=== PATIENT | female | born 1980 | race Hispanic/Latino ===

== ENCOUNTER 2024-04-07 21:49 | Inpatient (IN) | payer OTHER ==
[~2024-04-07] VITALS: Ht 157.5 cm; Wt 65.8 kg
[2024-04-07 22:21] VITALS: PULSE 109; RESP 22; O2SAT 100
[2024-04-07 22:21] LABS: BASOPHILS # (AUTO) 0.1 (0.0-0.1); BASOPHILS % 0.4 % (0.0-1.0); EOSINOPHILS # (AUTO) 0.4 (0.0-0.4); EOSINOPHILS % 3.7 % (0.0-6.0); HEMATOCRIT 39.6 % (34.2-44.1); HEMOGLOBIN 12.2 g/dL (12.0-16.0); LYMPHOCYTES # (AUTO) 2.8 (1.0-3.2); LYMPHOCYTES % 23.5 % (18.0-39.1); MEAN CORPUSCULAR HEMOGLOBIN 28.4 pg (28-32); MEAN CORPUSCULAR HGB CONC 30.8 g/dL (31-35); MEAN CORPUSCULAR VOLUME 92.1 fL (81-99); MONOCYTES # (AUTO) 0.8 (0.2-0.8); MONOCYTES % 6.4 % (4.4-11.3); NEUTROPHILS # (AUTO) 7.7 (2.1-6.9); NEUTROPHILS % 65.5 % (38.7-80.0); PLATELET COUNT 375 x10e3/uL (140-360)
[2024-04-07] MEDS: ALBUTEROL SULF 0.083% NEB SOLN 3 ML NEB NEB STA (22:24)
[2024-04-07 22:25] LABS: ABG PH 7.34 (7.35-7.45)
[2024-04-07 22:26] LABS: ABG HCO3 24 mmol/L (22-26); ABG PCO2 43 mmHg (35-45); ABG PO2 323 mmHg (80-105); ABG TCO2 25
[2024-04-07 22:29] LABS: INFLUENZAE A&B ANTIGEN (RAPID) NEGATIVE (NEGATIVE); RESPIRATORY SYNC. VIRUS NEGATIVE (NEGATIVE)
[2024-04-07] MEDS: SODIUM CHLORIDE 0.9% 1000ML 1,000 ML IV ONE (22:32)
[2024-04-07] MEDS: METHYLPREDNISOLONE SOD SUCC 125 MG/2ML VIAL IV ONE (22:32)
[2024-04-07 22:38] LABS: ALBUMIN 3.7 g/dL (3.5-5.0); ALBUMIN/GLOBULIN RATIO 0.9 (0.8-2.0); ANION GAP 13.1 mmol/L (8-16); BILIRUBIN,TOTAL 0.3 mg/dL (0.2-1.2); CALCIUM 9.7 mg/dL (8.4-10.2); CREATININE, SERUM 0.8 mg/dL (0.57-1.11); POTASSIUM 4.1 mmol/L (3.5-5.1)
[2024-04-07 23:54] VITALS: PULSE 97; RESP 20; O2SAT 95
[2024-04-07] MEDS: IPRATROPIUM BROMIDE 0.02% 2.5 ML NEB NEB ONE (23:56)
[2024-04-08] VITALS (14 sets, daily range): BP systolic 122–146; BP diastolic 77–97; PULSE 83–110; RESP 16–20; TEMP 98–98.9; O2SAT 94–100
[2024-04-08] MEDS ORDERED: ONDANSETRON HCL INJ 2MG/ML 2ML 2 MG/ML VIAL IV PRN
[2024-04-08] MEDS: SODIUM CHLORIDE 0.9% 1000ML 1,000 ML IV SCH (00:14)
[2024-04-08] MEDS: ALBUTEROL/IPRATROPIUM 3 ML NEB NEB SCH ×2 (03:27→13:00)
[2024-04-08] MEDS ORDERED: PROTONIX20 MG PO (05:40)
[2024-04-08] MEDS ORDERED: CITALOPRAM HBR20 MG PO (05:40)
[2024-04-08] MEDS ORDERED: BUPROPION XL150 MG PO (05:40)
[2024-04-08] MEDS ORDERED: SYMBICORT 80-10.2 GM INH (05:40)
[2024-04-08] MEDS ORDERED: HYDROXYZINE PAM25 MG PO (05:40)
[2024-04-08] MEDS ORDERED: BENZONATATE100 MG PO (05:40)
[2024-04-08] MEDS ORDERED: PROPRANOLOL HCL40 MG PO (05:40)
[2024-04-08] MEDS ORDERED: MONTELUKAST SOD10 MG PO (05:40)
[2024-04-08] MEDS ORDERED: LACTULOSE10 GM/15 M (05:40)
[2024-04-08] MEDS ORDERED: NEURONTIN100 MG PO (05:40)
[2024-04-08] MEDS: METHYLPREDNISOLONE SOD SUCC 40 MG/ML VIAL 1ML IV SCH ×3 (05:48→22:07)
[2024-04-08 08:47] LABS: BASOPHILS % 0.1 % (0.0-1.0); HEMATOCRIT 39.6 % (34.2-44.1); LYMPHOCYTES # (AUTO) 0.9 (1.0-3.2); LYMPHOCYTES % 7.5 % (18.0-39.1); MEAN CORPUSCULAR HEMOGLOBIN 28.2 pg (28-32); MEAN CORPUSCULAR HGB CONC 30.3 g/dL (31-35); MONOCYTES # (AUTO) 0.1 (0.2-0.8); MONOCYTES % 0.4 % (4.4-11.3); NEUTROPHILS # (AUTO) 11.4 (2.1-6.9); NEUTROPHILS % 91.4 % (38.7-80.0); PLATELET COUNT 308 x10e3/uL (140-360); RED BLOOD COUNT 4.26 x10e6/uL (3.6-5.1); RED CELL DISTRIBUTION WIDTH 15.9 % (11.7-14.4); WHITE BLOOD COUNT 12.45 x10e3/uL (4.8-10.8)
[2024-04-08 09:15] LABS: ALBUMIN 3.3 g/dL (3.5-5.0); ALBUMIN/GLOBULIN RATIO 0.8 (0.8-2.0); ANION GAP 12.9 mmol/L (8-16); BILIRUBIN,TOTAL 0.4 mg/dL (0.2-1.2); CALCIUM 9.4 mg/dL (8.4-10.2); CREATININE, SERUM 0.68 mg/dL (0.57-1.11); POTASSIUM 3.9 mmol/L (3.5-5.1); TOTAL PROTEIN 7.4 g/dL (6.5-8.1)
[2024-04-08 10:58] LABS: LYMPHOCYTES % (MANUAL) 8 % (19-48); NEUTROPHILS % (MANUAL) 92 % (40-74)
[2024-04-08 11:00] LABS: ANISOCYTOSIS SLIGHT; PLATELET ESTIMATE ADEQUATE; PLATELET MORPHOLOGY COMMENT NORMAL
[2024-04-08 11:01] LABS: RBC MORPHOLOGY COMMENT NORMAL
[2024-04-08] MEDS ORDERED: POTASSIUM CHLORIDE 20 MEQ TAB CR PO PRN (12:15)
[2024-04-08] MEDS ORDERED: SIMETHICONE 80 MG CHEW PO PRN (12:15)
[2024-04-08] MEDS ORDERED: LIDOCAINE 4% PATCH TP PRN (12:15)
[2024-04-08] MEDS ORDERED: HYDRALAZINE HCL 20 MG/ML VIAL IV PRN (12:15)
[2024-04-08] MEDS ORDERED: BENZONATATE 100 MG CAP PO PRN (12:15)
[2024-04-08] MEDS ORDERED: METHYLPREDNISOLONE SOD SUCC 40 MG/ML VIAL 1ML IV SCH ×2 (12:15)
[2024-04-08] MEDS ORDERED: DIPHENHYDRAMINE HCL 25 MG CAP PO PRN (12:15)
[2024-04-08] MEDS ORDERED: DEXTROSE 50% SYRINGE 50 ML IV PRN (12:15)
[2024-04-08] MEDS ORDERED: HYDROXYZINE PAMOATE 25 MG CAP PO PRN (12:30)
[2024-04-08] MEDS ORDERED: PROPRANOLOL HCL 40 MG TAB PO PRN (12:30)
[2024-04-08] MEDS: BUDESONIDE 0.5MG/2 ML NEB INH SCH (13:38)
[2024-04-08] MEDS ORDERED: HYDROXYZINE HCL 25 MG TAB PO PRN (13:45)
[2024-04-08] MEDS: METHYLPREDNISOLONE SOD SUCC 125 MG/2ML VIAL IV ONE (13:46)
[2024-04-08] MEDS: ALBUTEROL/IPRATROPIUM 3 ML NEB NEB PRN (16:12)
[2024-04-08] MEDS: MAGNESIUM HYDROXIDE 30 ML UDC PO ONE (16:56)
[2024-04-08] MEDS: CITRATE OF MAGNESIA 300ML BOTTLE PO ONE (16:56)
[2024-04-08] MEDS: ENOXAPARIN SOD INJ 40 MG/0.4 ML SYR SC SCH (17:01)
[2024-04-08] MEDS: ACETAMINOPHEN 325 MG TAB PO PRN (17:55)
[2024-04-08] MEDS: CHLORASEPTIC SPRAY 177 ML BTL MM PRN (19:04)
[2024-04-08] MEDS: BUDESONIDE/FORMOTEROL 80/4.5 MCG INHALER IH SCH (19:49)
[2024-04-08] MEDS: MONTELUKAST SODIUM 10 MG TAB PO SCH (22:07)
[2024-04-08] MEDS: MELATONIN 5 MG TABLET PO PRN (22:18)
[2024-04-09] VITALS (11 sets, daily range): BP systolic 114–143; BP diastolic 76–86; PULSE 70–93; RESP 18–21; TEMP 98.2–98.5; O2SAT 96–99
[2024-04-09 05:19] LABS: BASOPHILS % 0.1 % (0.0-1.0); HEMATOCRIT 40.2 % (34.2-44.1); HEMOGLOBIN 12.1 g/dL (12.0-16.0); LYMPHOCYTES # (AUTO) 1.5 (1.0-3.2); LYMPHOCYTES % 8.9 % (18.0-39.1); MEAN CORPUSCULAR HEMOGLOBIN 27.9 pg (28-32); MEAN CORPUSCULAR HGB CONC 30.1 g/dL (31-35); MEAN CORPUSCULAR VOLUME 92.8 fL (81-99); MONOCYTES # (AUTO) 0.4 (0.2-0.8); MONOCYTES % 2.1 % (4.4-11.3); NEUTROPHILS # (AUTO) 15.2 (2.1-6.9); NEUTROPHILS % 88.1 % (38.7-80.0); PLATELET COUNT 425 x10e3/uL (140-360); RED BLOOD COUNT 4.33 x10e6/uL (3.6-5.1); RED CELL DISTRIBUTION WIDTH 16.2 % (11.7-14.4)
[2024-04-09 06:00] LABS: ANION GAP 13.4 mmol/L (8-16); CALCIUM 10.1 mg/dL (8.4-10.2); CREATININE, SERUM 0.77 mg/dL (0.57-1.11); POTASSIUM 4.4 mmol/L (3.5-5.1)
[2024-04-09] MEDS: PANTOPRAZOLE SOD 40 MG TABEC PO SCH (07:49)
[2024-04-09] MEDS: GABAPENTIN 100 MG CAP PO SCH (09:40)
[2024-04-09] MEDS: BUPROPION HCL 150 MG TABCR PO SCH (09:40)
[2024-04-09] MEDS: CITALOPRAM HYDROBROMIDE 20 MG TAB PO SCH (09:40)
[2024-04-09] MEDS: METHYLPREDNISOLONE SOD SUCC 40 MG/ML VIAL 1ML IV SCH (13:52)
[2024-04-10] VITALS (12 sets, daily range): BP systolic 124–137; BP diastolic 82–90; PULSE 72–91; RESP 17–20; TEMP 98.1–98.8; O2SAT 94–98
[2024-04-10] MEDS: GUAIFENESIN/CODEINE 5 ML LIQD PO PRN (06:38)
[2024-04-10] MEDS: MAGNESIUM HYDROXIDE 30 ML UDC PO PRN (20:45)
[2024-04-11] VITALS (7 sets, daily range): BP systolic 124–145; BP diastolic 91–98; PULSE 70–90; RESP 17–20; TEMP 98.1–98.4; O2SAT 94–97
[2024-04-11] MEDS: DOCUSATE SODIUM 100 MG CAP PO PRN (05:42)
[2024-04-11 07:20] LABS: ASPERGILLUS FUMIGATUS IGE <0.10 kU/L (Class 0); Alternaria alternata IgE <0.10 kU/L (Class 0); BAHIA GRASS IGE <0.10 kU/L (Class 0); CEDAR, MOUNTAIN IGE <0.10 kU/L (Class 0); COMMON RAGWEED IgE <0.10 kU/L (Class 0); Cladopsorium herbarum IgE <0.10 kU/L (Class 0); ELM, AMERICAN IGE 0.17 kU/L (Class 0/I); JOHNSON GRASS IGE <0.10 kU/L (Class 0); MAPLE/BOX ELDER IGE <0.10 kU/L (Class 0); MUCOR RACEMOSUS <0.10 kU/L (Class 0); MUGWORT IGE <0.10 kU/L (Class 0); NETTLE IGE <0.10 kU/L (Class 0); PENICILLIUM CHRYSOGEN IGE <0.10 kU/L (Class 0); PLANTAIN, ENGLISH IGE <0.10 kU/L (Class 0); SHEEP SORREL (DOCK) IGE 0.14 kU/L (Class 0/I); STEMPHYLIUM HERBARUM IGE <0.10 kU/L (Class 0); SYCAMORE,AMERICAN IGE <0.10 kU/L (Class 0); TIMOTHY IGE <0.10 kU/L (Class 0); WHITE MULBERRY IGE <0.10 kU/L (Class 0)
[2024-04-11 09:21] LABS: AMERICAN COCKROACH IGE <0.10 kU/L (Class 0); HICKORY,WHITE IGE <0.10 kU/L (Class 0)
[2024-04-11] MEDS ORDERED: ONDANSETRON HCL 4 MG ORAL DISINTEGRATING TAB PO PRN (17:00)
[2024-04-12] MEDS ORDERED: AZITHROMYCIN 250 MG TAB PO SCH (09:00)
== END 2024-04-11 16:45 | disposition home or self-care (01) | DRG 202 ==
LOC: ER 21:59 → ERHOLD 04-08 → MED/SURG 04-08 03:10 → OBSVTOIN 04-08 12:17
PROVIDERS: ADMIT Internal Medicine; ATTEND Internal Medicine
DX: J45.901 Unspecified asthma with (acute) exacerbation (principal); J96.21 Acute and chronic respiratory failure with hypoxia; J45.902 Unspecified asthma with status asthmaticus; F41.9 Anxiety disorder, unspecified; K59.00 Constipation, unspecified; Z11.52 Encounter for screening for COVID-19; Z82.5 Family history of asthma and other chronic lower respiratory diseases
CPT/HCPCS: 36415; 36600; 71045; 74018; 80048; 80053; 81025; 82785; 82805; 84484; 85025; 86001; 86003; 87400; 87420; 93005; 94640; 94664; 94799; 99284; J0696; J1650; J2919; J7030; J7050; Q0177; U0002

== ENCOUNTER 2024-05-23 07:16 | Inpatient (IN) | payer OTHER ==
[2024-05-23] VITALS (25 sets, daily range): BP systolic 102–122; BP diastolic 64–90; PULSE 73–92; RESP 14–35; TEMP 97.2–98.6; O2SAT 89–100
[~2024-05-23] VITALS: Ht 157.5 cm; Wt 63.5 kg
[~2024-05-23 07:16] MED LIST: BENZONATATE100 MG PO; BUPROPION XL150 MG PO; CITALOPRAM HBR20 MG PO; HYDROXYZINE PAM25 MG PO; LACTULOSE10 GM/15 M; MONTELUKAST SOD10 MG PO; NEURONTIN100 MG PO; PROPRANOLOL HCL40 MG PO; PROTONIX20 MG PO; SYMBICORT 80-10.2 GM INH
[2024-05-23] MEDS ORDERED: MAGNESIUM SULFATE 2GM/50ML 50 ML IV ONE (07:24)
[2024-05-23] MEDS ORDERED: SODIUM CHLORIDE 0.9% 1000ML 1,000 ML ONE (07:24)
[2024-05-23] MEDS ORDERED: METHYLPREDNISOLONE SOD SUCC 125 MG/2ML VIAL ONE (07:24)
[2024-05-23] MEDS: MAGNESIUM SULFATE 2GM/50ML 50 ML IV ONE (07:27)
[2024-05-23] MEDS: METHYLPREDNISOLONE SOD SUCC 125 MG/2ML VIAL IV ONE (07:27)
[2024-05-23] MEDS: SODIUM CHLORIDE 0.9% 1000ML 1,000 ML IV ONE (07:27)
[2024-05-23 07:41] LABS: BASOPHILS # (AUTO) 0.1 (0.0-0.1); BASOPHILS % 0.6 % (0.0-1.0); EOSINOPHILS # (AUTO) 0.8 (0.0-0.4); EOSINOPHILS % 7.8 % (0.0-6.0); LYMPHOCYTES # (AUTO) 2.2 (1.0-3.2); LYMPHOCYTES % 20.4 % (18.0-39.1); MEAN CORPUSCULAR HEMOGLOBIN 27.8 pg (28-32); MEAN CORPUSCULAR HGB CONC 30.2 g/dL (31-35); MEAN CORPUSCULAR VOLUME 92.1 fL (81-99); MONOCYTES # (AUTO) 0.5 (0.2-0.8); MONOCYTES % 4.6 % (4.4-11.3); NEUTROPHILS # (AUTO) 7.2 (2.1-6.9); NEUTROPHILS % 66.3 % (38.7-80.0); PLATELET COUNT 442 x10e3/uL (140-360); RED BLOOD COUNT 4.67 x10e6/uL (3.6-5.1); RED CELL DISTRIBUTION WIDTH 15.9 % (11.7-14.4)
[2024-05-23] MEDS: ALBUTEROL/IPRATROPIUM 3 ML NEB NEB ONE (07:50)
[2024-05-23 07:53] LABS: ALBUMIN 3.8 g/dL (3.5-5.0); ALBUMIN/GLOBULIN RATIO 0.8 (0.8-2.0); ANION GAP 11.9 mmol/L (8-16); BILIRUBIN,TOTAL 0.5 mg/dL (0.2-1.2); CALCIUM 9.8 mg/dL (8.4-10.2); CREATININE, SERUM 0.73 mg/dL (0.57-1.11); POTASSIUM 3.9 mmol/L (3.5-5.1); TOTAL PROTEIN 8.3 g/dL (6.5-8.1)
[2024-05-23] MEDS: ALBUTEROL SULF 0.083% NEB SOLN 3 ML NEB NEB STA (08:25)
[2024-05-23] MEDS ORDERED: ONDANSETRON HCL INJ 2MG/ML 2ML 2 MG/ML VIAL IV PRN (09:30)
[2024-05-23] MEDS: MUPIROCIN 2% OINT 22 GM TUBE TOP SCH (09:30)
[2024-05-23] MEDS ORDERED: SODIUM CHLORIDE 0.9% 1000ML 1,000 ML IV SCH (09:30)
[2024-05-23] MEDS: ALBUTEROL/IPRATROPIUM 3 ML NEB NEB SCH (14:31)
[2024-05-23] MEDS: BUDESONIDE/FORMOTEROL 160/4.5MCG INHALER INH SCH (18:29)
[2024-05-23] MEDS: ACETAMIN/BUTALBITAL/CAFFEINE TAB PO PRN (19:45)
[2024-05-23] MEDS: METHYLPREDNISOLONE SOD SUCC 40 MG/ML VIAL 1ML IV SCH (21:06)
[2024-05-24] VITALS (22 sets, daily range): BP systolic 100–122; BP diastolic 68–87; PULSE 69–99; RESP 12–28; TEMP 98.2–98.7; O2SAT 90–98
[2024-05-24] MEDS: BENZONATATE 100 MG CAP PO PRN (04:25)
[2024-05-24 07:40] LABS: BASOPHILS % 0.1 % (0.0-1.0); EOSINOPHILS % 0.1 % (0.0-6.0); HEMATOCRIT 35.7 % (34.2-44.1); HEMOGLOBIN 11.3 g/dL (12.0-16.0); LYMPHOCYTES # (AUTO) 1.8 (1.0-3.2); LYMPHOCYTES % 24.6 % (18.0-39.1); MEAN CORPUSCULAR HEMOGLOBIN 27.8 pg (28-32); MEAN CORPUSCULAR HGB CONC 31.7 g/dL (31-35); MEAN CORPUSCULAR VOLUME 87.9 fL (81-99); MONOCYTES # (AUTO) 0.4 (0.2-0.8); MONOCYTES % 5.3 % (4.4-11.3); NEUTROPHILS % 69.3 % (38.7-80.0); PLATELET COUNT 329 x10e3/uL (140-360); RED BLOOD COUNT 4.06 x10e6/uL (3.6-5.1); RED CELL DISTRIBUTION WIDTH 15.9 % (11.7-14.4); WHITE BLOOD COUNT 7.23 x10e3/uL (4.8-10.8)
[2024-05-24] MEDS ORDERED: HYDROXYZINE PAMOATE 25 MG CAP PO PRN (07:45)
[2024-05-24] MEDS ORDERED: IOPAMIDOL 370 MG/ML 100 ML INFUS..BTL INJ ONE (07:55)
[2024-05-24 08:10] LABS: ALBUMIN 3.4 g/dL (3.5-5.0); ALBUMIN/GLOBULIN RATIO 0.9 (0.8-2.0); ANION GAP 14.1 mmol/L (8-16); BILIRUBIN,TOTAL 0.4 mg/dL (0.2-1.2); CALCIUM 9.5 mg/dL (8.4-10.2); CREATININE, SERUM 0.73 mg/dL (0.57-1.11); POTASSIUM 4.1 mmol/L (3.5-5.1); TOTAL PROTEIN 7.1 g/dL (6.5-8.1)
[2024-05-24] MEDS: CITALOPRAM HYDROBROMIDE 20 MG TAB PO SCH (09:15)
[2024-05-24] MEDS: BUPROPION HCL 150 MG TABCR PO SCH (09:15)
[2024-05-24] MEDS: ALBUTEROL/IPRATROPIUM 3 ML NEB NEB SCH (11:33)
[2024-05-24] MEDS ORDERED: ALBUTEROL SULF 0.083% NEB SOLN 3 ML NEB NEB SCH (13:00)
[2024-05-24] MEDS: MONTELUKAST SODIUM 10 MG TAB PO SCH (20:04)
[2024-05-25] VITALS (16 sets, daily range): BP systolic 109–135; BP diastolic 73–97; PULSE 75–100; RESP 14–20; TEMP 98.2–98.7; O2SAT 93–99
[2024-05-26] VITALS (11 sets, daily range): BP systolic 113–129; BP diastolic 83–96; PULSE 77–106; RESP 15–25; TEMP 97.7–98.9; O2SAT 92–99
[2024-05-26] MEDS ORDERED: Albuterol/Ipratropium Nebulize NEB (16:34)
[2024-05-26] MEDS ORDERED: AZITHROMYCIN250 MG PO (16:34)
[2024-05-26] MEDS ORDERED: SYMBICORT 16010.2 GM INH (16:34)
== END 2024-05-26 17:10 | disposition home or self-care (01) | DRG 202 ==
LOC: ER 07:20 → ERHOLD 09:18 → ICU 13:21 → MED/SURG2 05-26 08:33
PROVIDERS: ADMIT Internal Medicine; ATTEND Internal Medicine
DX: J45.901 Unspecified asthma with (acute) exacerbation (principal); J12.9 Viral pneumonia, unspecified; J96.01 Acute respiratory failure with hypoxia; F41.9 Anxiety disorder, unspecified; J45.902 Unspecified asthma with status asthmaticus
CPT/HCPCS: 36415; 71045; 71260; 80053; 82948; 84702; 85025; 94640; 94664; 94799; 99284; J0696; J2919; J3475; J7030; J7050; Q9967

== ENCOUNTER 2024-06-24 12:33 | Inpatient (IN) | payer SELFPAY ==
[~2024-06-24] VITALS: Ht 157.5 cm; Wt 63.5 kg
[2024-06-24] VITALS (9 sets, daily range): BP systolic 125–131; BP diastolic 91; PULSE 65–97; RESP 18–22; TEMP 97.8–98.3; O2SAT 96–98
[~2024-06-24 12:33] MED LIST changes: +AZITHROMYCIN250 MG PO; +Albuterol/Ipratropium Nebulize NEB; +SYMBICORT 16010.2 GM INH
[2024-06-24 13:00] LABS: BASOPHILS # (AUTO) 0.1 (0.0-0.1); BASOPHILS % 0.9 % (0.0-1.0); EOSINOPHILS # (AUTO) 0.7 (0.0-0.4); EOSINOPHILS % 7.7 % (0.0-6.0); HEMATOCRIT 40.1 % (34.2-44.1); HEMOGLOBIN 11.8 g/dL (12.0-16.0); LYMPHOCYTES # (AUTO) 2.4 (1.0-3.2); MEAN CORPUSCULAR HEMOGLOBIN 27.4 pg (28-32); MEAN CORPUSCULAR HGB CONC 29.4 g/dL (31-35); MEAN CORPUSCULAR VOLUME 93.3 fL (81-99); MONOCYTES # (AUTO) 0.6 (0.2-0.8); MONOCYTES % 6.9 % (4.4-11.3); NEUTROPHILS # (AUTO) 5.4 (2.1-6.9); NEUTROPHILS % 58.3 % (38.7-80.0); PLATELET COUNT 337 x10e3/uL (140-360); RED CELL DISTRIBUTION WIDTH 15.9 % (11.7-14.4); WHITE BLOOD COUNT 9.31 x10e3/uL (4.8-10.8)
[2024-06-24 13:20] LABS: ALBUMIN 3.6 g/dL (3.5-5.0); ALBUMIN/GLOBULIN RATIO 0.9 (0.8-2.0); ANION GAP 12.8 mmol/L (8-16); BILIRUBIN,TOTAL 0.3 mg/dL (0.2-1.2); CALCIUM 9.3 mg/dL (8.4-10.2); CREATININE, SERUM 0.72 mg/dL (0.57-1.11); POTASSIUM 4.8 mmol/L (3.5-5.1); TOTAL PROTEIN 7.7 g/dL (6.5-8.1)
[2024-06-24] MEDS: MAGNESIUM SULFATE 2GM/50ML 50 ML IV ONE (14:04)
[2024-06-24] MEDS: SODIUM CHLORIDE 0.9% 1000ML 1,000 ML IV ONE (14:04)
[2024-06-24] MEDS: ACETAMINOPHEN 325 MG TAB PO ONE (14:05)
[2024-06-24] MEDS: NITROGLYCERIN 2% OINT 1 GM PKT TOP ONE (14:05)
[2024-06-24] MEDS: ALBUTEROL/IPRATROPIUM 3 ML NEB NEB ONE ×2 (14:07→16:03)
[2024-06-24 14:43] LABS: INFLUENZA A AG NEGATIVE (NEGATIVE)
[2024-06-24 14:44] LABS: CORONAVIRUS COVID-19 AG NEGATIVE (NEGATIVE); INFLUENZA B AG NEGATIVE (NEGATIVE)
[2024-06-24] MEDS: SODIUM CHLORIDE 0.9% 1000ML 1,000 ML IV SCH (15:30)
[2024-06-24] MEDS: METHYLPREDNISOLONE SOD SUCC 125 MG/2ML VIAL IV SCH (16:20)
[2024-06-24] MEDS ORDERED: PROPRANOLOL HCL40 MG PO (17:44)
[2024-06-24] MEDS ORDERED: ALBUTEROL2.5 MG/3 M INH (17:44)
[2024-06-24] MEDS ORDERED: BUPROPION XL300 MG PO (17:44)
[2024-06-24] MEDS: HYDROCODONE/APAP 5MG-325MG TAB PO ONE (18:29)
[2024-06-24] MEDS ORDERED: ALBUTEROL SULF 0.083% NEB SOLN 3 ML NEB INH PRN (18:30)
[2024-06-24] MEDS ORDERED: PROPRANOLOL HCL 40 MG TAB PO PRN (18:30)
[2024-06-24] MEDS: DOCUSATE SODIUM 100 MG CAP PO SCH (18:34)
[2024-06-24] MEDS: SENNOSIDES 8.6 MG TAB PO ONE (18:34)
[2024-06-24] MEDS: ALBUTEROL/IPRATROPIUM 3 ML NEB NEB SCH (19:22)
[2024-06-24] MEDS: MONTELUKAST SODIUM 10 MG TAB PO SCH (20:21)
[2024-06-24] MEDS: ONDANSETRON HCL INJ 2MG/ML 2ML 2 MG/ML VIAL IV PRN (20:21)
[2024-06-24] MEDS: HYDROXYZINE PAMOATE 25 MG CAP PO PRN (23:03)
[2024-06-24] MEDS: METHYLPREDNISOLONE SOD SUCC 40 MG/ML VIAL 1ML IV SCH (23:10)
[2024-06-25] VITALS (14 sets, daily range): BP systolic 100–129; BP diastolic 60–89; PULSE 66–92; RESP 16–22; TEMP 97.9–99.4; O2SAT 95–100
[2024-06-25 05:30] LABS: BASOPHILS % 0.1 % (0.0-1.0); HEMATOCRIT 40.7 % (34.2-44.1); HEMOGLOBIN 12.2 g/dL (12.0-16.0); LYMPHOCYTES # (AUTO) 1.2 (1.0-3.2); LYMPHOCYTES % 15.3 % (18.0-39.1); MEAN CORPUSCULAR HEMOGLOBIN 27.3 pg (28-32); MEAN CORPUSCULAR VOLUME 91.1 fL (81-99); MONOCYTES # (AUTO) 0.1 (0.2-0.8); MONOCYTES % 1.7 % (4.4-11.3); NEUTROPHILS # (AUTO) 6.4 (2.1-6.9); NEUTROPHILS % 82.5 % (38.7-80.0); PLATELET COUNT 394 x10e3/uL (140-360); RED BLOOD COUNT 4.47 x10e6/uL (3.6-5.1); RED CELL DISTRIBUTION WIDTH 15.5 % (11.7-14.4); WHITE BLOOD COUNT 7.76 x10e3/uL (4.8-10.8)
[2024-06-25 05:48] LABS: ALBUMIN 3.7 g/dL (3.5-5.0); ALBUMIN/GLOBULIN RATIO 0.9 (0.8-2.0); ANION GAP 13.8 mmol/L (8-16); BILIRUBIN,TOTAL 0.4 mg/dL (0.2-1.2); CALCIUM 9.8 mg/dL (8.4-10.2); CREATININE, SERUM 0.75 mg/dL (0.57-1.11); POTASSIUM 3.8 mmol/L (3.5-5.1); TOTAL PROTEIN 7.9 g/dL (6.5-8.1)
[2024-06-25] MEDS ORDERED: HYDRALAZINE HCL 20 MG/ML VIAL IV PRN ×2 (09:30→15:15)
[2024-06-25] MEDS: CITALOPRAM HYDROBROMIDE 20 MG TAB PO SCH (10:41)
[2024-06-25] MEDS: BUPROPION HCL 150 MG TABCR PO SCH (10:41)
[2024-06-25] MEDS: BUDESONIDE/FORMOTEROL 160/4.5MCG INHALER INH SCH (11:00)
[2024-06-25] MEDS: DOCUSATE SODIUM 100 MG CAP PO SCH (16:49)
[2024-06-25] MEDS: FAMOTIDINE 20 MG TAB PO SCH (16:50)
[2024-06-25] MEDS: BISACODYL 10 MG SUPP PR ONE (16:50)
[2024-06-25] MEDS: POLYETHYLENE GLYCOL 3350 17 GM PACK PO SCH (17:00)
[2024-06-25] MEDS: GUAIFENESIN/CODEINE 5 ML LIQD PO PRN (20:40)
[2024-06-25] MEDS: ACETAMINOPHEN 325 MG TAB PO PRN (20:40)
[2024-06-26] VITALS (7 sets, daily range): BP systolic 110–116; BP diastolic 68–84; PULSE 75–86; RESP 16–20; TEMP 98.4–98.8; O2SAT 75–100
[2024-06-26] MEDS ORDERED: SIMETHICONE 80 MG CHEW PO PRN (09:30)
[2024-06-26] MEDS: OXYMETAZOLINE HCL 0.05% NAS 1 SPRAY BTL SCH (10:51)
[2024-06-26] MEDS ORDERED: SALINE 0.65% (13:14)
[2024-06-26] MEDS ORDERED: OXYMETAZOLINE HCL 0.05% (13:14)
[2024-06-26] MEDS: SALINE 0.65% NAS SOLN 1 SPRAY BTL SCH (14:06)
[2024-06-26] MEDS ORDERED: ONDANSETRON HCL 4 MG ORAL DISINTEGRATING TAB PO PRN (15:15)
[2024-06-27] MEDS ORDERED: PREDNISONE 20 MG TAB PO SCH (09:00)
[2024-06-27] MEDS ORDERED: AZITHROMYCIN 250 MG TAB PO SCH (09:00)
== END 2024-06-26 17:04 | disposition home or self-care (01) | DRG 202 ==
LOC: ER 12:38 → ERHOLD 15:25 → MED/SURG 16:39 → OBSVTOIN 06-25 16:47
PROVIDERS: ADMIT Internal Medicine; ATTEND Internal Medicine
DX: J45.901 Unspecified asthma with (acute) exacerbation (principal); J96.00 Acute respiratory failure, unspecified whether with hypoxia or hypercapnia; J32.4 Chronic pansinusitis; Z99.81 Dependence on supplemental oxygen; K59.00 Constipation, unspecified; F06.8 Other specified mental disorders due to known physiological condition; F41.9 Anxiety disorder, unspecified; F32.A Depression, unspecified; Z11.52 Encounter for screening for COVID-19; Z79.899 Other long term (current) drug therapy
CPT/HCPCS: 36415; 70486; 71045; 74018; 80053; 84702; 85025; 94640; 94664; 94760; 94799; 99284; G0378; J0696; J2405; J2919; J3475; J7030; J7050; Q0177

== ENCOUNTER 2024-08-15 08:11 | Emergency (ER) | payer OTHER ==
[~2024-08-15] VITALS: Ht 157.5 cm; Wt 63.5 kg
[~2024-08-15 08:11] MED LIST changes: +ALBUTEROL2.5 MG/3 M INH; +BUPROPION XL300 MG PO; +OXYMETAZOLINE HCL 0.05%; +SALINE 0.65%
[2024-08-15 08:30] VITALS: PULSE 82; RESP 18; O2SAT 96
[2024-08-15 08:48] VITALS: PULSE 85; RESP 18; O2SAT 98
[2024-08-15] MEDS: ALBUTEROL/IPRATROPIUM 3 ML NEB NEB ONE (08:49)
[2024-08-15] MEDS: METHYLPREDNISOLONE SOD SUCC 125 MG/2ML VIAL IM STA (08:51)
[2024-08-15 09:04] LABS: INFLUENZA A AG NEGATIVE (NEGATIVE); INFLUENZA B AG NEGATIVE (NEGATIVE)
[2024-08-15 09:05] LABS: CORONAVIRUS COVID-19 AG NEGATIVE (NEGATIVE)
[2024-08-15 09:22] VITALS: BP 139/86; PULSE 76; RESP 18
[2024-08-15] MEDS ORDERED: ALBUTEROL0.63 MG/3 NEB (09:39)
[2024-08-15] MEDS ORDERED: VENTOLIN HFA18 GM INH (09:39)
[2024-08-15] MEDS ORDERED: PREDNISONE20 MG PO (09:39)
[2024-08-15] MEDS ORDERED: AZITHROMYCIN250 MG PO (09:39)
[2024-08-15 10:01] VITALS: PULSE 74; RESP 18; TEMP 97.5; O2SAT 95
== END 2024-08-15 09:55 | disposition home or self-care (01) ==
LOC: ER 08:13
DX: R05.9 Cough, unspecified (principal); J06.9 Acute upper respiratory infection, unspecified; J45.901 Unspecified asthma with (acute) exacerbation; Z11.52 Encounter for screening for COVID-19
CPT/HCPCS: 71045; 87428; 94640 ×2; 94799; 99284; J2919